=== PATIENT | male | born 1935 | race Caucasian/White ===

== ENCOUNTER 2017-03-07 10:19 | Emergency (ER) | payer MEDICARE ==
[~2017-03-07] VITALS: Ht 177.8 cm; Wt 90.9 kg
[~2017-03-07 10:19] MED LIST: CYAN50003 PO; LACT1CAP73 PO; LISI-567 PO; OMEG500C PO; OMPR20CCR PO; PSYL0.525 PO; RIVA20TA PO; UBID100C16 PO
[2017-03-07 10:25] VITALS: BP 155/97; PULSE 62; RESP 14; O2SAT 97
--- NOTE | 2017-03-07 10:48 | ED.REPORT ---
HPI-Trauma Minor / Fall Date of Service Mar 07, 2017 ED Provider: Jorge Gonzalez MD An 82 year old male with a history of Nur's Esophagus, paroxysmal A-fib and GERD presents to the ED following a head injury that occurred at 2200 last night. Patient reports that he was hurrying to the bathroom when he tripped and hit the back of his head on the corner of the table. He currently takes Xarelto for his A-fib. Patient denies any LOC or vomiting following the incident. Nursing Notes Stated Complaint: HEAD INJURY ON XARELTO Chief Complaint: Head, Face, Neck Trauma Nursing Notes Reviewed: Yes Allergies: Coded Allergies: No Known Allergies (Verified Allergy, Unknown, 01/16/15) Scheduled Cyanocobalamin (Vitamin B-12) (Vitamin B-12) 5,000 Mcg Tab.rapdis 5,000 MCG PO DAILY Lactobacillus Combo No.11 (Probiotic) 1 Each Cap.sprink 1 EACH PO DAILY Lisinopril (Lisinopril) 20 Mg Tablet 20 MG PO DAILY [place]-3 Fatty Acids (Fish Oil) 500 Mg Capsule.dr 1,000 MG PO DAILY Omeprazole (Prilosec) 20 Mg Capcr 20 MG PO DAILY Psyllium Husk (Psyllium Fiber) 0.52 Gm Capsule 2 CAP PO DAILY Rivaroxaban (Xarelto) 20 Mg Tablet 20 MG PO DAILY Ubidecarenone (Coq-10) 100 Mg Capsule 300 MG PO DAILY General Time Seen by MD: 10:35 Chief Complaint Head injury Hx Obtained From: Patient Arrived By: Walk-in Onset Occurred: 9 - 12 hours ago Symptom Duration: Since onset Caused by: Accidental Location: Head Quality: Aching Severity: Current: Moderate Severity: Maximum: Moderate Associated with: Denies: Loss of consciousness, Vomiting Pertinent Negative: Pt denies other symptoms Recent Healthcare: No recent doctor visit, No recent hospitalization Risk Factors Head CT Imaging Inclusion Criteria: >/= 16 yo age Presentation w/in 24 hrs. RF Statements: Risk factors reviewed Past Medical History Past Medical History Nur's Esophagus Paroxysmal A-fib GERD Past Surgical History None reported. Smoking History Former Smoker Social History Other Social History: Good social support, Local resident Ambulatory Status Independent Review of Systems Neurologic: Reports: Headache, Denies: Change LOC Complete sys rev & neg: except as marked. GI: Denies: Vomiting Physical Exam Initial Vital Signs Vital Signs (First) Date Time Temp Pulse Resp B/P Pulse Ox O2 Delivery O2 Flow Rate FiO2 03/07/17 10:25 36.6 62 14 155/97 97 Room Air Initial VS: Reviewed Extremities: Vascular intact, Neuro intact, No swelling, No tenderness Skin: Warm, Dry, No cyanosis Psychiatric: Mood/affect normal, Behavior normal, Normal thought content General/Constitutional: Awake, Alert, No acute distress, Well appearing, Well developed Neck: Atraumatic, Supple, Full range of motion, Non-tender (No C-spine tenderness) Head / Eyes: Normocephalic, PERRL Trauma - General: Positive: Abrasion (R posterior scalp (Healing)) HEAD/EYES: No active bleeding Respiratory / Chest: Atraumatic, Breath sounds NL, Breath sounds = bilat, No respiratory distress Cardiovascular: Heart rate NL, Regular rhythm, Heart sounds NL, No murmurs Abdomen: Atraumatic, Soft Neurologic: Oriented X3, Speech NL, No motor deficits, No sensory deficits, CN II - XII intact, Reflexes equal bilat Interpretation & Diagnostics Lab Results Interpretation Result Diagram: 03/07/17 1239 03/07/17 1239 Test 03/07/17 12:39 White Blood Count 14.4th/mm3 (3.8-10.1) Red Blood Count 5.08mil/mm3 (4.40-5.80) Hemoglobin 17.1g/dL (13.8-17.2) Hematocrit 47.8% (41.0-50.0) Mean Corpuscular Volume 94.1fL (81-100) Mean Corpuscular Hemoglobin 33.7pg (27.0-35.0) Mean Corpuscular Hemoglobin Concent 35.8% (32.0-37.0) Red Cell Distribution Width 14.6% (12.3-15.4) Platelet Count 326bil/L (150-400) Neutrophils (%) (Auto) 58.1% (40-74) Lymphocytes (%) (Auto) 31.0% (14-46) Monocytes (%) (Auto) 8.7% (4-12) Eosinophils (%) (Auto) 1.6% (0-5) Basophils (%) (Auto) 0.3% (0-3) Prothrombin Time 13.1sec (8.1-12.5) Prothromb Time International Ratio 1.22ratio Sodium Level 140mEq/L (134-144) Potassium Level 4.3mEq/L (3.5-5.2) Chloride Level 103mEq/L (97-108) Carbon Dioxide Level 24mmol/L (18-29) Blood Urea Nitrogen 16mg/dL (8-27) Creatinine 1.19mg/dL (0.76-1.27) Estimat Glomerular Filtration Rate 62mL/min (>59) Glucose Level 108mg/dL (60-99) Calcium Level 9.1mg/dL (8.5-10.1) Total Bilirubin 0.5mg/dL (0.0-1.2) Aspartate Amino Transf (AST/SGOT) 17U/L (0-50) Alanine Aminotransferase (ALT/SGPT) 13U/L (0-44) Alkaline Phosphatase 82U/L (25-160) Total Protein 6.6g/dL (6.4-8.4) Albumin 3.7g/dL (3.4-5.0) CT Head Interpretation IMPRESSION: 1. Prominent bifrontal chronic hygromas. However, as noted above, there are small, linear areas of isodensity bilaterally, right greater than left. Findings are suggestive of likely late subacute superimposed hemorrhage versus evolving chronic fibrotic change. Recommend clinical correlation patient symptoms and as clinically indicated, a [address] followup may be obtained to document stability. 2. Moderate atrophy and chronic microvascular ischemic changes. Dictated by: Gissell Titus M.D. on 03/07/2017 at 11:26 Study: Head CT no contrast Interpretation / Wet Read by: Interpret - Radiologist Re-Eval/Medical Decision Med Decision/Clinical Course 82-year-old male on xarelto presenting status post ground-level fall last night presenting with headache today. He has no focal neurological deficits. He denies loss of consciousness. His CT head shows chronic hygromas and cannot rule out evolving subacute hemorrhage. Recommended repeat CT head in 6 hours by radiology. Neurological exam remained stable throughout his time in my care. Senna to Dr. Vishal Villavicencio pending repeat CT head. Re-Evaluation/Progress : Time of Eval: 11:13 Re-Evaluation/Progress Note: Patient is informed of his initial CT scan and the plan to obtain another in 6 hours to rule out a bleed. Counseled Regarding: Diagnosis, Lab results Discharge & Departure Shift Change Sign-Out Patient Care Transferred: Yes Discussed Complaint(s): Yes Laboratory Evaluation: Lab evaluation discussed Imaging Studies: Ordered, not yet done Dr. Villavicencio Impression: Primary Impression: Head trauma Encounter type: initial encounter Qualified Code: S09.90XA - Unspecified injury of head, initial encounter Discharge Condition All VS Reviewed: Yes Condition: Stable Referrals: Jg Johnsno DO (PCP) Care Transferred to: Dr. Villavicencio Care Transferred at: 15:00 Scribe Attestation Portions of this note were transcribed by Brad Bolden. I, Dr. Gonzalez personally performed the history, physical exam and medical decision-making; I reviewed and confirmed the accuracy of the information in the transcribed note. Signed by: Samira Keyes, 03/07/17 1513. copies to: Jg Johnson Ben M MD Mar 07, 2017 10:47 BRAD BOLDEN Mar 07, 2017 11:11
--- NOTE | 2017-03-07 11:31 | DRSVH ---
PROCEDURE: CT BRAIN WITHOUT CONTRAST ([id number]) INDICATIONS: fall TECHNIQUE: Noncontrast 4.5 mm thick angled axial sections acquired from the foramen magnum to the vertex, with c oronal reformats. COMPARISON: None. FINDINGS: Image quality: Excellent. CSF spaces: Basal cisterns are patent. No extra-axial fluid collections. The ventricles are symmet boris in size and shape. Brain: No intracranial bleeds or masses. Prominent low attenuation collections are present in the s ubpleural regions bilaterally suggestive of chronic subdural hygromas. However, there is linear areas of relative isointensity identified bilaterally within the hygromas, most commonly on the right seen on series 2 image 13. There is cerebral volume loss for age, with resultant ventricular and sulcal p rominence. There are periventricular and deep white matter chronic small vessel ischemic changes. T here is intracranial internal carotid artery atherosclerosis. Skull and face: Calvarium and visualized facial bones appear intact, without suspicious lesions. Oc cipital scalp laceration. Sinuses: Visualized sinuses and mastoids are clear. IMPRESSION: 1. Prominent bifrontal chronic hygromas. However, as noted above, there are small, linear areas of is odensity bilaterally, right greater than left. Findings are suggestive of likely late subacute superi mposed hemorrhage versus evolving chronic fibrotic change. Recommend clinical correlation patient sym ptoms and as clinically indicated, a [address] followup may be obtained to document stabilit y. 2. Moderate atrophy and chronic microvascular ischemic changes. Dictated by: Gissell Titus M.D. on 03/07/2017 at 11:26 Approved by: Gissell Titus M.D. on 03/07/2017 at 11:29
[2017-03-07 11:55] VITALS: BP 120/85; PULSE 66; RESP 17; O2SAT 95
[2017-03-07 12:56] LABS: BASOPHILS % (AUTO) 0.3 % (0-3); EOSINOPHILS % (AUTO) 1.6 % (0-5); MONOCYTES % (AUTO) 8.7 % (4-12); Mean Corpuscular Hemoglobin 33.7 pg (27.0-35.0); Mean Corpuscular Volume 94.1 fL (81-100); NEUTROPHILS % (AUTO) 58.1 % (40-74); Platelet Count 326 bil/L (150-400)
[2017-03-07 13:08] LABS: INR 1.22 ratio
[2017-03-07 14:00] VITALS: BP 145/86; PULSE 63; RESP 17; O2SAT 97
[2017-03-07 16:11] VITALS: BP 145/108; PULSE 70; RESP 20; O2SAT 95
--- NOTE | 2017-03-07 17:50 | DRSVH ---
PROCEDURE: CT BRAIN WITHOUT CONTRAST ([id number]) INDICATIONS: head trauma TECHNIQUE: Noncontrast 4.5 mm thick angled axial sections acquired from the foramen magnum to the vertex, with c oronal reformats. COMPARISON: None. FINDINGS: Image quality: Excellent. CSF spaces: Basal cisterns are patent. No extra-axial fluid collections. The ventricles are symmet boris in size and shape. Brain: As identified on prior exam, bifrontal predominantly hypodense hygromas are present. There ar e linear areas of basilar density identified bilaterally. These have been unchanged compared to prior exam dated 03/07/17 at 10:57 AM. There is cerebral volume loss for age, with resultant ventricular an d sulcal prominence. There are periventricular and deep white matter chronic small vessel ischemic c hanges. There is intracranial internal carotid artery atherosclerosis. Skull and face: Calvarium and visualized facial bones appear intact, without suspicious lesions. Sinuses: Visualized sinuses and mastoids are clear. IMPRESSION: 1. Bifrontal hygromas appearing predominantly chronic. The areas of isointensity identified on the ex amination earlier today have remained stable without interval progression. As noted, these foci could represent late subacute hemorrhage versus evolving fibrotic change. Imaging appearance demonstrates no interval progression and clinical correlation to symptoms is recommended Dictated by: Gissell Titus M.D. on 03/07/2017 at 17:46 Approved by: Gissell Titus M.D. on 03/07/2017 at 17:49
[2017-03-07 18:20] VITALS: BP 144/100; PULSE 66; RESP 17; O2SAT 97
== END 2017-03-07 18:36 | disposition home or self-care (01) ==
LOC: SED 10:19
DX: S09.8XXA Other specified injuries of head, initial encounter (principal); W01.190A Fall on same level from slipping, tripping and stumbling with subsequent striking against furniture, initial encounter; Y92.009 Unspecified place in unspecified non-institutional (private) residence as the place of occurrence of the external cause; Y93.01 Activity, walking, marching and hiking; Y99.8 Other external cause status; I48.0 Paroxysmal atrial fibrillation; I48.91 Unspecified atrial fibrillation; K22.70 Barrett's esophagus without dysplasia; K21.9 Gastro-esophageal reflux disease without esophagitis; Z87.891 Personal history of nicotine dependence; Z79.01 Long term (current) use of anticoagulants
CPT/HCPCS: 36415; 70450; 80053; 85025; 85610; 99284; G0463